=== PATIENT | male | born 2000 | race Caucasian/White ===

== ENCOUNTER 2022-10-20 19:48 | Emergency (ER) | payer BC, OTHER ==
[~2022-10-20] VITALS: Ht 180.3 cm; Wt 63.5 kg
[2022-10-20 19:54] VITALS: BP 146/113
== END 2022-10-20 23:52 | disposition home or self-care (01) ==
LOC: ER 19:48
DX: S81.812A Laceration without foreign body, left lower leg, initial encounter (principal); W27.0XXA Contact with workbench tool, initial encounter
CPT/HCPCS: 12002; 73590; 90714; 99283-25; A9270